=== PATIENT | female | born 1990 | race Caucasian/White ===

== ENCOUNTER 2018-07-22 14:43 | Emergency (ER) | payer SELFPAY ==
[2018-07-22 14:54] VITALS: BP 123/92; PULSE 61; TEMP 98.3; BMI 29.2
--- NOTE | 2018-07-22 15:46 | PDOC ---
History of Present Illness - General Stated Complaint: COUGH Time Seen by Provider: 07/22/18 15:45 History Source: Patient Exam Limitations: No Limitations - History of Present Illness Initial Comments: 07/22/18 16:23 Patient is a 28-year-old female with past medical history of asthma, who presents to the emergency department today for 3 days of dry cough, earache, sore throat, congestion. Patient states that she's been using her nebulizer treatments more frequently than usual. She states that her breathing feels tight. Denies fevers, chills, chest pain, nausea, vomiting, diarrhea. Patient has never been intubated for her asthma. Past History - Travel Traveled outside of the country in the last 30 days: No Close contact w/someone who was outside of country & ill: No - Past Medical History Allergies/Adverse Reactions: Allergies Allergy/AdvReac Type Severity Reaction Status Date / Time No Known Allergies Allergy Verified 07/22/18 15:17 Home Medications: Ambulatory Orders NK [No Known Home Medication] 07/22/18 Asthma: Yes Cancer: No Cardiac Disorders: No CVA: No COPD: No CHF: No DVT: No Dementia: No Diabetes: No - Surgical History Appendectomy: No Cardiac Surgery: No Cholecystectomy: No Gastric Stapling: No - Suicide/Smoking/Psychosocial Hx Smoking Status: Yes Smoking History: Current every day smoker Have you smoked in the past 12 months: Yes Number of Cigarettes Smoked Daily: 10 Information on smoking cessation initiated: Yes 'Breaking Loose' booklet given: 07/22/18 Hx Alcohol Use: No Drug/Substance Use Hx: No Substance Use Type: Alcohol Review of Systems - Review of Systems Able to Perform ROS?: Yes Comments:: 07/22/18 15:45 CONSTITUTIONAL: Absent: fever, chills, diaphoresis, generalized weakness, malaise, loss of appetite HEENT: Present: congestion, sore throat Absent: rhinorrhea, nasal congestion, throat pain, throat swelling, difficulty swallowing, mouth swelling, ear pain, eye pain , visual Changes CARDIOVASCULAR: Absent: chest pain, loss of consciousness, palpitations, irregular heart rate, peripheral edema RESPIRATORY: Present: cough, diff breathing Absent: cough, shortness of breath, dyspnea with exertion, orthopnea, wheezing, stridor, hemoptysis GASTROINTESTINAL: Absent: abdominal pain, abdominal distension, nausea, vomiting, diarrhea, constipation, melena, hematochezia GENITOURINARY: Absent: dysuria, frequency, urgency, hesitancy, hematuria, flank pain, genital pain MUSCULOSKELETAL: Absent: myalgia, arthralgia, joint swelling SKIN: Absent: rash, itching, pallor HEMATOLOGIC/IMMUNOLOGIC: Absent: easy bleeding, easy bruising, lymphadenopathy, frequent infections ENDOCRINE: Absent: unexplained weight gain, unexplained weight loss, heat intolerance, cold intolerance NEUROLOGIC: Absent: headache, focal weakness or paresthesias, dizziness, unsteady gait, seizure, mental status changes, bladder or bowel incontinence PSYCHIATRIC: Absent: anxiety, depression, suicidal or homicidal ideation, hallucinations. Is the patient limited Estonian proficient: No *Physical Exam - Vital Signs Last Vital Signs Temp Pulse Resp BP Pulse Ox 98.3 F 61 123 H 123/92 100 07/22/18 14:49 07/22/18 14:49 07/22/18 14:49 07/22/18 14:49 07/22/18 14:49 - Physical Exam Comments: 07/22/18 15:46 GENERAL: Well developed, well nourished. Awake and alert. No acute distress. HEENT: Normocephalic, atraumatic. PERRLA, EOMI. No conjunctival pallor. Sclera are non- icteric. Moist mucous membranes. Oropharynx is clear. NECK: Supple. Full ROM. No JVD. Carotid pulses 2+ and symmetric, without bruits. No thyromegaly. (+) R cervical lymphadenopathy. CARDIOVASCULAR: Regular rate and rhythm. No murmurs, rubs, or gallops. Distal pulses are 2+ and symmetric. PULMONARY: No evidence of respiratory distress. Lungs clear to auscultation bilaterally. No wheezing, rales or rhonchi. ABDOMINAL: Soft. Non-tender. Non-distended. No rebound or guarding. No organomegaly. Normoactive bowel sounds. MUSCULOSKELETAL Normal range of motion at all joints. No bony deformities or tenderness. No CVA tenderness. EXTREMITIES: No cyanosis. No clubbing. No edema. No calf tenderness. SKIN: Warm and dry. Normal capillary refill. No rashes. No jaundice. NEUROLOGICAL: Alert, awake, appropriate. Cranial nerves 2-12 intact. No deficits to light touch and temperature in face, upper extremities and lower extremities. No motor deficits in the in face, upper extremities and lower extremities. Normoreflexic in the upper and lower extremities. Normal speech. Toes are down- going bilaterally. Gait is normal without ataxia. PSYCHIATRIC: Cooperative. Good eye contact. Appropriate mood and affect. Medical Decision Making - Medical Decision Making 07/22/18 16:24 Patient is a 28-year-old female past medical history of asthma, who presents emergency department with 3 days of cold-like symptoms. On exam patient with right cervical LAD. Throat appears benign however given the LAD rapid strep was obtained. Rapid strep is negative at this time. Repeat lung sounds with good aeration to the bases, no wheezing. Pt feels like she can take a bigger breath. Patient feels better after DuoNeb, motrin and robitussin Most likely a viral syndrome. Discharge home with supportive treatment. I discussed the physical exam findings, ancillary test results and final diagnoses with the patient. I answered all of the patient's questions. The patient was satisfied with the care received and felt comfortable with the discharge plan and treatment plan. The Patient agrees to follow up with the primary care physician/specialist within 24-72 hours. Return precautions were given. *DC/Admit/Observation/Transfer Diagnosis at time of Disposition: URI (upper respiratory infection) Qualifiers: URI type: unspecified URI Qualified Code(s): J06.9 - Acute upper respiratory infection, unspecified - Discharge Dispostion Disposition: HOME Condition at time of disposition: Stable Decision to Admit order: No - Referrals Referrals: Fred Kiser MD [Staff Physician] - - Patient Instructions Printed Discharge Instructions: DI for Viral Upper Respiratory Infection -- Adult Additional Instructions: You have an upper respiratory infection, or the common cold. Your strep testing was negative today. Please take Motrin 800 mg every 8 hours as needed for pain not to exceed 3000 mg a day. Drink plenty of fluids. Cough drops and warm tea may help your symptoms as well. Please follow up with her primary care doctor this week. If you do not have one , a referral has been provided to you. Return to the emergency department if you have difficulty breathing, shortness of breath, worsening pain, nausea, vomiting or if you have any changes in your symptoms. - Post Discharge Activity
[2018-07-22] MEDS ORDERED: IBUPROFEN 600 MG TABLET (FP) PO ONE ×2 (15:51→15:53)
[2018-07-22] MEDS ORDERED: ALBUTEROL SO4 2.5/IPRATROPIUM 0.5 INH SOL 3 ML VIAL.NEB. NEB ONE ×2 (15:51→15:53)
== END 2018-07-22 16:28 | disposition home or self-care (01) ==
LOC: JERFT 14:43
PROC: 3E0F7GC Introduction of Other Therapeutic Substance into Respiratory Tract, Via Natural or Artificial Opening (ICD-10-PCS; principal; 2018-07-22)
DX: J06.9 Acute upper respiratory infection, unspecified (principal); J45.909 Unspecified asthma, uncomplicated; F17.210 Nicotine dependence, cigarettes, uncomplicated
CPT/HCPCS: 87070; 87430; 99281-25

== ENCOUNTER 2019-02-20 11:23 | Emergency (ER) | payer SELFPAY | END 2019-02-20 12:58 | disposition home or self-care (01) | LOC: JERFT 11:23 ==

== ENCOUNTER 2020-07-09 14:08 | Emergency (ER) | payer OTHER ==
[2020-07-09 14:13] VITALS: BP 131/93; PULSE 85; TEMP 97.7; BMI 30.2
--- OUTSIDE RECORDS SUMMARY | 2020-07-09 14:19 | XMS ---
:1990 Author Organization [facility] Support Name Relationship Address Phone [facility] Unavailable [address] [place] [address] [facility] [place] [address] ALEYDA BARON MOTHER [address] [place] [address] ALEYDA BARON Mother [address] [place] [address] Re-disclosure Warning The records that you are about to access may contain information from federally- assisted alcohol or drug abuse programs. If such information is present, then the following federally mandated warning applies: This information has been disclosed to you from records protected by federal confidentiality rules (42 CFR part 2). The federal rules prohibit you from making any further disclosure of this information unless further disclosure is expressly permitted by the written consent of the person to whom it pertains or as otherwise permitted by 42 CFR part 2. A general authorization for the release of medical or other information is NOT sufficient for this purpose. The Federal rules restrict any use of the information to criminally investigate or prosecute any alcohol or drug abuse patient.The records that you are about to access may contain highly sensitive health information, the redisclosure of which is protected by Article 27-F of the [facility] Public Health law. If you continue you may haveaccess to information: Regarding HIV / AIDS; Provided by facilities licensed or operated by the [facility] Office of Mental Health; or Provided by the [facility] Office for People With Developmental Disabilities. If such information is present, then the following [facility] mandated warning applies: This information has been disclosed to you from confidential records which are protected by state law. State law prohibits you from making any further disclosure of this information without the specific written consent of the person to whom it pertains, or as otherwise permitted by law. Any unauthorized further disclosure in violation of state law may result in a fine or long-term sentence or both. A general authorization for the release of medical or other information is NOT sufficient authorization for further disclosure. Insurance Providers Payer name Policy type Policy ID Covered Covered libertarian's Policy P flaco / Coverage libertarian ID relationship to Fay Inf ormation type fay [employer] [id number] SP [id number] SELF PAY SP INSURANCE Results ID Date Data Source [id number] 03/09/2020 12:15:00 PM EDT [facility] Name Value Range Interpretation Description Data Sup porting Code Source(s) Document(s ) SARS [facility] CORONAVIRUS 2 RNA This lab was ordered by [facility] and reported by [facility]. Procedure
[2020-07-09] MEDS ORDERED: IBUPROFEN 400 MG TABLET (FP) PO ONE ×2 (15:42→15:54)
--- NOTE | 2020-07-09 15:47 | PDOC ---
History of Present Illness - General Chief Complaint: Injury Stated Complaint: LACERATION Time Seen by Provider: 07/09/20 14:19 History Source: Patient - History of Present Illness Occurred: reports: other (last night) Pain Location: reports: upper extremity Past History - Medical History Allergies/Adverse Reactions: Allergies Allergy/AdvReac Type Severity Reaction Status Date / Time No Known Allergies Allergy Verified 07/09/20 14:09 Home Medications: Ambulatory Orders Guaifenesin [Mucinex -] 600 mg PO ASDIR 02/20/19 Ibuprofen [Motrin -] 600 mg PO TID 3 Days #15 tablet 02/20/19 Amoxicillin - [Amoxicillin 500mg Capsule -] 500 mg PO BID #20 capsule 03/09/20 Ibuprofen 600 mg PO Q6H #30 tablet 03/09/20 Asthma: Yes Cancer: No Cardiac Disorders: No CVA: No COPD: No CHF: No DVT: No Dementia: No Diabetes: No - Surgical History Appendectomy: No Cardiac Surgery: No Cholecystectomy: No Gastric Stapling: No - Reproductive History Is Patient Now?: No - Psycho-Social/Smoking History Smoking Status: Yes Smoking History: Never smoked Have you smoked in the past 12 months: No Number of Cigarettes Smoked Daily: 5 'Breaking Loose' booklet given: 07/22/18 - Substance Abuse Hx (Audit-C & DAST Scrn) How often the patient has a drink containing alcohol: Never Score: In Men: 4 or > Positive; In Women: 3 or > Positive: 0 Screen Result (Pos requires Nsg. Audit-10AR): Negative In the last yr the pt used illegal drug/Rx for NonMed reason: No Score: Yes response is considered Positive: 0 Screen Result (Positive result requires Nsg. DAST-10): Negative Review of Systems - Review of Systems Able to Perform ROS?: Yes Neurological: No: Numbness *Physical Exam - Vital Signs Last Vital Signs Temp Pulse Resp BP Pulse Ox 97.7 F 85 16 131/93 100 07/09/20 14:09 07/09/20 14:09 07/09/20 14:09 07/09/20 14:09 07/09/20 14:09 - Physical Exam General Appearance: Yes: Appropriately Dressed, Mild Distress HEENT: positive: Normal Voice Neck: positive: Supple Respiratory/Chest: negative: Respiratory Distress Extremity: positive: Other (curved superficial lac to lateral aspect of proximal phalanx or R 5th digit, FROMI, no sensory deficits) Integumentary: positive: Dry, Warm Neurologic: positive: Fully Oriented, Alert, Normal Mood/Affect Procedures - Laceration/Wound Repair Right 5th digit Wound Length: to 2.5 cm Wound's Depth, Shape: superficial Anesthesia: 1% Lidocaine Amount of Anesthetic (ccs): 7 Wound Repaired With: Sutures Suture Size/Type: 5:0, nylon (7) Sterile Dressing Applied: Yes Medical Decision Making - Medical Decision Making 07/09/20 15:43 30-year-old female no significant history here with R finger laceration after handling a broken glass while washing dishes last night. No acute sensory changes. Tetanus up-to-date see exam Finger lac repair No e/o tendon injury Tetanus UTD Dc w/ wound check in 2 days 07/09/20 15:48 Discharge - Discharge Information Problems reviewed: Yes Clinical Impression/Diagnosis: Finger laceration Qualifiers: Encounter type: initial encounter Finger: ring finger Damage to nail status: without damage Foreign body presence: without foreign body Laterality: right Qualified Code(s): S61.214A - Laceration without foreign body of right ring finger without damage to nail, initial encounter Condition: Good Disposition: HOME - Follow up/Referral Referrals: Kishor Munoz MD [Primary Care Provider] - - Patient Discharge Instructions Patient Printed Discharge Instructions: DI for Laceration Repair -- Finger Additional Instructions: My keep dressing in place for at least 24 hours after which one can be opened to air. You can gently cleaned wound with mild soap and water after 24 hours to prevent crusting over the suture knots. You can also apply an antibiotic ointment twice a day until sutures are removed. Return for redness, discharge or fever Sutures are removed in 7 days - Post Discharge Activity Work/Back to School Note: Back to Work
== END 2020-07-09 15:57 | disposition home or self-care (01) ==
LOC: JERFT 14:08
PROC: 0HQFXZZ Repair Right Hand Skin, External Approach (ICD-10-PCS; principal; 2020-07-09)
DX: S61.214A Laceration without foreign body of right ring finger without damage to nail, initial encounter (principal)
CPT/HCPCS: 99283-25

== ENCOUNTER 2021-01-28 13:01 | Emergency (ER) | payer OTHER ==
[2021-01-28 13:08] VITALS: BP 135/83; PULSE 100; TEMP 97.9; BMI 28.8
== END 2021-01-28 13:42 | disposition home or self-care (01) ==
LOC: JERFT 13:01 → JER 13:01 → JERFT 13:42
DX: L66.2 Folliculitis decalvans (principal); R59.9 Enlarged lymph nodes, unspecified
CPT/HCPCS: 99281-25